=== PATIENT | male | born 1995 | race Caucasian/White ===

== ENCOUNTER 2016-07-24 21:26 | Emergency (ER) | payer BC ==
[2016-07-24] MEDS ORDERED: NS 0.9% 1000 ML* 1,000 ML IV ONE (21:48)
[2016-07-24] MEDS ORDERED: Acetaminophen TAB* 325 MG PO ONE (21:49)
[2016-07-24] MEDS ORDERED: Ondansetron INJ* 2 MG/ML VIAL ONE (22:21)
[2016-07-24] MEDS ORDERED: Ondansetron INJ* 2 MG/ML VIAL IV ONE ×2 (22:28→22:29)
[2016-07-24 22:54] LABS: Add Diff/Slide Review? Slide Review Added; Hematocrit 42 % (42-52); Hemoglobin 14.5 g/dl (14.0-18.0); Mean Corpuscular HGB Conc 35 g/dl (31-36); Mean Corpuscular Hemoglobin 28 pg (27-31); Mean Corpuscular Volume 80 fL (80-94); Mean Platelet Volume 8 um3 (7.4-10.4); Red Blood Count 5.25 10^6/ul (4.0-5.4); Red Cell Distribution Width 13 % (10.5-15); White Blood Count 10.3 10^3/ul (3.5-10.8)
[2016-07-24 23:03] LABS: Albumin 4.6 g/dL (3.2-5.2); BUN/Creatinine Ratio 18.2 (8-20); C Reactive Protein 67.29 mg/L (< 5.00); Calcium 9.5 mg/dL (8.6-10.3); EGFR Non-African American 127.5 (>60); Globulin 3.8 g/dL (2-4); Potassium 3.2 mmol/L (3.5-5.0); Total Bilirubin 0.5 mg/dL (0.2-1.0); Total Protein 8.4 g/dL (6.4-8.9)
[2016-07-24] MEDS ORDERED: NS 0.9% 1000 ML* 3,000 ML IV ONE (23:29)
[2016-07-25 00:31] LABS: Urine Bacteria 1+ (Absent); Urine Bilirubin Negative (Negative); Urine Glucose Negative (Negative); Urine Nitrite Negative (Negative)
--- NOTE | 2016-07-25 02:20 | ED ---
HPI Febrile Illness - HPI Summary HPI Summary: Patient arrives to ED with CC of generalized malaise, fever, cough, sore throat x 3 days. He was told by his MD family member to get tamiflu which he has been taking. He is extremely diaphoretic upon arrival. Otherwise healthy and takes no medications. Denies urinary symptoms, abdominal pain, chest pressure or SOB. HR 130. Sepsis protocol followed. See treatment. - History of Current Complaint Chief Complaint: EDFever Time Seen by Provider: 07/24/16 21:39 Hx Obtained From: Patient Onset/Duration: Started Days Ago Timing: Intermittent Initial Severity: Moderate Current Severity: Moderate Pain Intensity: 4 Pain Scale Used: 0-10 Numeric Aggravating Factors: Nothing Alleviating Factors: Nothing Associated Signs and Symptoms: Diaphoresis, Headache, Myalgia - Risk Factors Pseudomonas Risk Factors: Negative Serious Bacterial Infection Risk Factors: Negative - Allergy/Home Medications Allergies/Adverse Reactions: Allergies Allergy/AdvReac Type Severity Reaction Status Date / Time No Known Allergies Allergy Verified 07/26/15 22:29 PMH/Surg Hx/FS Hx/Imm Hx Previously Healthy: Yes Infectious Disease History: No Infectious Disease History: Denies: Traveled Outside the [place] in Last 30 Days - Social History Occupation: Student Lives: With Family Alcohol Use: None Hx Substance Use: No Substance Use Type: Reports: Marijuana Smoking Status (MU): Light Every Day Tobacco Smoker Do You Chew or Dip Tobacco: No Review of Systems Positive: Fever, Skin Diaphoresis Eyes: Negative Positive: Sore Throat Cardiovascular: Negative Positive: Cough Gastrointestinal: Negative Positive: no symptoms reported, see HPI Positive: Myalgia Skin: Negative Positive: Headache Psychological: Normal All Other Systems Reviewed And Are Negative: Yes Physical Exam Triage Information Reviewed: Yes Vital Signs On Initial Exam: Initial Vitals Temp Pulse Resp BP Pulse Ox 99.6 F 125 17 150/103 98 07/24/16 21:38 07/24/16 21:38 07/24/16 21:38 07/24/16 21:38 07/24/16 21:38 Vital Signs Reviewed: Yes Appearance: Positive: Ill-Appearing, Pain Distress Skin: Positive: Diaphoretic - extremely Head/Face: Positive: Normal Head/Face Inspection Eyes: Positive: EOMI, ESTRELLA, Conjunctiva Clear ENT: Positive: Pharynx normal, TMs normal Neck: Positive: Supple, No Lymphadenopathy Respiratory/Lung Sounds: Positive: Clear to Auscultation, Breath Sounds Present Cardiovascular: Positive: RRR, Tachycardia Abdomen Description: Positive: Nontender, No Organomegaly, Soft Bowel Sounds: Positive: Present Musculoskeletal: Positive: Normal, Strength/ROM Intact Neurological: Positive: Sensory/Motor Intact, Alert, Oriented to Person Place, Time, Speech Normal Psychiatric: Positive: Normal - [place] Coma Scale Coma Scale Total: 15 Diagnostics - Vital Signs Vital Signs Temp Pulse Resp BP Pulse Ox 07/24/16 22:31 98 99 07/24/16 22:23 101.6 F 07/24/16 21:54 99.6 F 125 17 150/103 98 07/24/16 21:38 99.6 F 125 17 150/103 98 - Laboratory Lab Results: Lab Results 07/24/16 07/24/16 07/24/16 Range/Units 21:50 21:58 22:07 WBC 10.3 (3.5-10.8) 10^3/ul RBC 5.25 (4.0-5.4) 10^6/ul Hgb 14.5 (14.0-18.0) g/dl Hct 42 (42-52) % MCV 80 (80-94) fL MCH 28 (27-31) pg MCHC 35 (31-36) g/dl RDW 13 (10.5-15) % Plt Count 162 (150-450) 10^3/ul MPV 8 (7.4-10.4) um3 Neut % (Auto) 71.0 (38-83) % Lymph % (Auto) 13.0 L (25-47) % [place] % (Auto) 15.3 H (1-9) % Eos % (Auto) 0.1 (0-6) % Baso % (Auto) 0.6 (0-2) % Absolute Neuts (auto) 7.3 (1.5-7.7) 10^3/ul Absolute Lymphs (auto) 1.3 (1.0-4.8) 10^3/ul Absolute Monos (auto) 1.6 H (0-0.8) 10^3/ul Absolute Eos (auto) 0 (0-0.6) 10^3/ul Absolute Basos (auto) 0.1 (0-0.2) 10^3/ul Absolute Nucleated RBC 0 10^3/ul Nucleated RBC % 0 Sodium (133-145) mmol/L Potassium (3.5-5.0) mmol/L Chloride (101-111) mmol/L Carbon Dioxide (22-32) mmol/L Anion Gap (2-11) mmol/L BUN (6-24) mg/dL Creatinine (0.67-1.17) mg/dL Est GFR ( Amer) (>60) Est GFR (Non-Af Amer) (>60) BUN/Creatinine Ratio (8-20) Glucose (70-100) mg/dL Calcium (8.6-10.3) mg/dL Total Bilirubin (0.2-1.0) mg/dL AST (13-39) U/L ALT (7-52) U/L Alkaline Phosphatase (34-104) U/L C-Reactive Protein (< 5.00) mg/L Total Protein (6.4-8.9) g/dL Albumin (3.2-5.2) g/dL Globulin (2-4) g/dL Albumin/Globulin Ratio (1-3) Urine Color Urine Appearance Urine pH (5-9) Ur Specific [place] (1.010-1.030) Urine Protein (Negative) Urine Ketones (Negative) Urine Blood (Negative) Urine Nitrate (Negative) Urine Bilirubin (Negative) Urine Urobilinogen (Negative) Ur Leukocyte Esterase (Negative) Urine WBC (Auto) (Absent) Urine RBC (Auto) (Absent) Urine Bacteria (Absent) Hyaline Casts (Absent) Urine Glucose (Negative) Urine Ascorbic Acid (Negative) Influenza A (Rapid) Negative (Negative) Influenza B (Rapid) Negative (Negative) Group A Strep Rapid Negative (Negative) 07/24/16 07/25/16 Range/Units 22:07 00:00 WBC (3.5-10.8) 10^3/ul RBC (4.0-5.4) 10^6/ul Hgb (14.0-18.0) g/dl Hct (42-52) % MCV (80-94) fL MCH (27-31) pg MCHC (31-36) g/dl RDW (10.5-15) % Plt Count (150-450) 10^3/ul MPV (7.4-10.4) um3 Neut % (Auto) (38-83) % Lymph % (Auto) (25-47) % [place] % (Auto) (1-9) % Eos % (Auto) (0-6) % Baso % (Auto) (0-2) % Absolute Neuts (auto) (1.5-7.7) 10^3/ul Absolute Lymphs (auto) (1.0-4.8) 10^3/ul Absolute Monos (auto) (0-0.8) 10^3/ul Absolute Eos (auto) (0-0.6) 10^3/ul Absolute Basos (auto) (0-0.2) 10^3/ul Absolute Nucleated RBC 10^3/ul Nucleated RBC % Sodium 135 (133-145) mmol/L Potassium 3.2 L (3.5-5.0) mmol/L Chloride 99 L (101-111) mmol/L Carbon Dioxide 27 (22-32) mmol/L Anion Gap 9 (2-11) mmol/L BUN 14 (6-24) mg/dL Creatinine 0.77 (0.67-1.17) mg/dL Est GFR ( Amer) 164.0 (>60) Est GFR (Non-Af Amer) 127.5 (>60) BUN/Creatinine Ratio 18.2 (8-20) Glucose 85 (70-100) mg/dL Calcium 9.5 (8.6-10.3) mg/dL Total Bilirubin 0.50 (0.2-1.0) mg/dL AST 25 (13-39) U/L ALT 26 (7-52) U/L Alkaline Phosphatase 46 (34-104) U/L C-Reactive Protein 67.29 H (< 5.00) mg/L Total Protein 8.4 (6.4-8.9) g/dL Albumin 4.6 (3.2-5.2) g/dL Globulin 3.8 (2-4) g/dL Albumin/Globulin Ratio 1.2 (1-3) Urine Color Yellow Urine Appearance Cloudy Urine pH 5.0 (5-9) Ur Specific [place] 1.029 (1.010-1.030) Urine Protein 1+(30 mg/dl) H (Negative) Urine Ketones 1+ H (Negative) Urine Blood 2+ H (Negative) Urine Nitrate Negative (Negative) Urine Bilirubin Negative (Negative) Urine Urobilinogen Negative (Negative) Ur Leukocyte Esterase Negative (Negative) Urine WBC (Auto) 2+(11-20/hpf) H (Absent) Urine RBC (Auto) 3+(>10/hpf) H (Absent) Urine Bacteria 1+ H (Absent) Hyaline Casts Present H (Absent) Urine Glucose Negative (Negative) Urine Ascorbic Acid * H (Negative) Influenza A (Rapid) (Negative) Influenza B (Rapid) (Negative) Group A Strep Rapid (Negative) Result Diagrams: 07/24/16 22:07 07/24/16 22:07 Lab Statement: Any lab studies that have been ordered have been reviewed, and results considered in the medical decision making process. - Radiology No standard instances Xray Interpretation: No Acute Changes Radiology Interpretation Completed By: Radiologist - FINDINGS: Cardiac and mediastinal contours appear to be within normal limits. The lungs are clear. No pleural effusion is seen. IMPRESSION: NO EVIDENCE FOR ACUTE DISEASE. Course/Dx - Course Course Of Treatment: HR 130, 101 fever on arrival. Sepsis protocol followed. Bolus NS 3000mg over 1.5 hours given. Flu negative. Xray negative. CPK 65. WBC WNL. UA showed RBC's, WBC's, protein and ketones. Patient feeling better and ready to be DC'd. Patient made aware of all results. Patient encouraged to follow up with DR. Limon in urology regarding UA results. Patient is without urinary symptoms. - Febrile Illness Differential Diagnoses: Bacteremia, Pneumonia, Sepsis, Other: - UTI - Diagnoses Provider Diagnoses: Flu-like symptoms Discharge - Discharge Plan Condition: Stable Disposition: HOME Prescriptions: Guaifenesin/Pseudo 600/60(NF) [Mucinex D 600/60 (NF)] 1 tab PO Q12H #8 tab MDD 2 Saline NASAL SPRAY 0.65%* [Sodium Chloride 0.65% Nasal [place]*] 1 spray BOTH NARES Q4H PRN #1 btl PRN Reason: Congestion Patient Education Materials: Viral Syndrome (ED) Forms: *School Release Referrals: [facility] STEPHANIE Parikh [Primary Care Provider] - Aris Limon MD [Medical Doctor] - Additional Instructions: Drink plenty of fluids. If you cannot seem to get enough fluids, drink gatorade. Rest over the next few days. When able to eat follow BRAT diet: Bananas, rice, applesauce, toast Symptoms likely due to viral gastroenteritis Take ibuprofen or Tylenol for pain as needed every 6 hours Follow up with primary within 5 days Return to ED if develop fever that does not respond to Tylenol or ibuprofen, severe abdominal pain, or any new or worsening symptoms
[2016-07-25 02:28] VITALS: BP 151/72
--- NOTE | 2016-07-25 08:22 | RAD ---
INDICATION: Chest pain. COMPARISON: There are no prior studies available for comparison. TECHNIQUE: A portable view of the chest was obtained. FINDINGS: Cardiac and mediastinal contours appear to be within normal limits. The lungs are clear. No pleural effusion is seen. IMPRESSION: NO EVIDENCE FOR ACUTE DISEASE.
== END 2016-07-25 02:27 | disposition home or self-care (01) ==
LOC: ED 21:26
DX: J11.1 Influenza due to unidentified influenza virus with other respiratory manifestations (principal); R51 Headache; M79.1 Myalgia; R05 Cough; J02.9 Acute pharyngitis, unspecified; F17.210 Nicotine dependence, cigarettes, uncomplicated
CPT/HCPCS: 36415; 71010; 80053; 81003; 81015; 85025; 86140; 87086; 87502; 87651; 93005; 96374; 96376; 99283; A9270-GY; J2405